=== PATIENT | male | born 1950 | race Caucasian/White ===

== ENCOUNTER 2018-05-09 15:35 | Emergency (ER) | payer OTHER, MEDICARE ==
[~2018-05-09] VITALS: Ht 177.8 cm; Wt 113.4 kg
[2018-05-09] MEDS ORDERED: IBUPROFEN800 MG PO (17:52)
[2018-05-09] MEDS ORDERED: CLOZAPINE100 MG PO (17:52)
[2018-05-09] MEDS ORDERED: LISINOPRIL-HCT1 EAC2 PO (17:52)
[2018-05-09] MEDS ORDERED: PHENYTOIN SODI100 MG PO (17:53)
[2018-05-09] MEDS ORDERED: VENLAFAXINE HCL75 M1 PO (17:53)
[2018-05-09] MEDS ORDERED: OMEPRAZOLE20 MG PO (17:53)
[2018-05-09] MEDS ORDERED: LAMOTRIGINE100 MG PO (17:53)
[2018-05-09] MEDS ORDERED: VENLAFAXINE HC150 MG PO (17:54)
[2018-05-09] MEDS ORDERED: KETOROLAC TROME10 MG PO (18:21)
== END 2018-05-09 18:45 | disposition home or self-care (01) ==
LOC: ED 15:35
DX: M79.642 Pain in left hand (principal); I10 Essential (primary) hypertension; Z79.899 Other long term (current) drug therapy; V89.2XXA Person injured in unspecified motor-vehicle accident, traffic, initial encounter
CPT/HCPCS: 73130; 99283-25